=== PATIENT | female | born 1965 | race Caucasian/White ===

== ENCOUNTER → 2016-09-22 | Day surgery (SDC) | payer MEDICARE, MEDICAID ==
[~2016-09-22] VITALS: Ht 170.2 cm; Wt 79.0 kg
[~2016-09-22] MED LIST: ALBU8.5H2 INHALATION; ARIP5TAB5 PO; Atropine 0.4 mg/mL Inj IVPUSH PRN; CITA20TA11 PO; DIPH25CA6 PO; HYOS0.1281 SL; LITH300T2 PO; Lactated Ringer's 1,000 ML IV ONE; Lactated Ringer's 1,000 ML IV SCH; MetoCLOpramide 5 mg/mL 2 mL Inj IVPUSH PRN; NICO1PAT16 TRANSDERM; Ondansetron 2 mg/mL 2 mL Inj IVPUSH PRN; Propofol 10,000 mCg/mL 20 mL Inj ONE; QUET300T PO; TAMS0.4C98 PO; TOPI25TA26 PO; ZLP5T PO
[2016-09-22 10:44] VITALS: BP 111/68; PULSE 61; RESP 16; O2SAT 100
--- NOTE | 2016-09-22 11:24 | PCM.HPANE ---
Patient Data Date of Service: Sep 22, 2016 Surgeon Admitting Provider: Attending Provider:Aba De La Fuente MD Primary Care Physician:Linn Coronado PA-C Other Provider:Alem William Anesthesia Reason for Visit Bloody Diarrhea/Esophageal Dysphagia R19.7 R13.14 Ht/WT & BMI Height (Feet): 5 Height (Inches): 7 Weight (Kilograms): 79.016 Body Mass Index 27.00 Allergies Coded Allergies: Sulfa (Sulfonamide Antibiotics) (Verified Allergy, Unknown, 09/21/16) Past Anesthesia History Anesthesia History: Denies:: Abnormal Airway, Anesthesia Reactions, Difficult Intubation, Fam Anesthesia Reaction, Fam Malignant Hypertherm, Malignant Hyperthermia Diabetes History Hx Diabetes?: No MRSA MRSA: No Medications Home Meds Incl Beta Bobo: No Reported Medications Zolpidem (Ambien)5 Mg TabletUnknown Dose PO HS PRN For Insomnia Ref 0 09/22/16 Topiramate (Topamax)25 Mg Mzmnlu92 Mg PO BID Ref 0 09/22/16 Quetiapine Fumarate (Seroquel)300 Mg Khemjr290 Mg PO HS Ref 0 09/22/16 Hyoscyamine SL (Levsin SL)0.125 Mg Tab.subl0.125 Mg SL 09/21/16 Tamsulosin (Flomax)0.4 Mg Capsule0.4 Mg PO DAILY Ref 0 09/21/16 Albuterol HFA (Proair HFA)8.5 Gm Hfa.aer.ad2 Puffs INHALATION Q4H #1 INHALER 09/21/16 Avinger Carbonate 300 Mg Piefxl133 Mg PO TID 09/21/16 Citalopram 20 Mg Wewfsg57 Mg PO DAILY Ref 0 09/21/16 diphenhydrAMINE HCl (Benadryl)25 Mg Qxkqvbr16 Mg PO HS PRN Ref 0 09/21/16 Aripiprazole (Abilify)5 Mg Tablet5 Mg PO DAILY Ref 0 09/21/16 Discontinued Reported Medications Nicotine 21 mg/24 hr Patch 1 Each Patch.dysq1 Patch TRANSDERM DAILY Ref 0 09/21/16 History History of ENT Problems?: Yes HEENT History: Denies:: Abnormal Airway Difficult Intubation Dysphagia Hearing Problem Denture Type: Full- Upper Full- Lower Teeth Condition: No Teeth Other HEENT Pertinent History: PRIOR TO COMING IN THIS MORNING PATIENT REMOVED HER CONTACTS AND SCRATCHED HER RIGHT EYE. IT IS QUITE PAINFUL AND IS WATERY. LIGHTLY TURNED DOWN FOR COMFORT. Hx of Heart Problems?: No Cardiovascular History: Denies:: AICD Atrial Fibrillation Chest Pain Hypertension Pacemaker Valvular Heart Disease Hx of Respiratory Problem?: Yes Respiratory History: Denies:: Asthma COPD Cough Hemoptysis Pneumonia Tuberculosis Other Resp Pertinent History: SOB-PT BELIEVES THAT THIS IS RELATED TO SMOKING AND SUDDEN WEIGHT GAIN Hx Neurologic Problems?: No Neurological History: Denies:: CVA Hx of GI Problems?: Yes Gastrointestinal History: Positive for:: Gastroesphageal Reflux Rectal Bleeding Hx of Problems?: No HX of Peritoneal Dialysis: No Female Hx: Denies:: Currently (HYSTERECTOMY) Hx Musculoskeletal Problems?: No Musculoskeletal History: Denies:: Fibromyalgia Joint Replacement Psycho Social History: Positive for:: Anxiety Hx Depression (BIPOLAR) Hx Surgeries?: Yes (HYSTERECTOMY, LAPAROSCOPIES X4) Hx Any Other Health Problems?: Yes Hx Diabetes: No Hx Alcohol Use: NoHx Substance Use: Yes Smoking Status: Current Every Day Smoker Have You Smoked inLast 12 mo: Yes Stop/Bang Treated for Sleep Apnea?: No Do You Have a CPAP Machine?: No S-Snoring: Do You Snore Loudly: Yes T-Tired: feel tired, fatigued: No O-Obsered: Observed not breath: No P-Blood Pressure: treated: No B- Body Mass Index > 35 kg/m2: No A- Age over 50: Yes N- Neck Large Circumference: No G- Gender Male: No YANCI Total Score: 2 YANCI Risk Assessment: Low Risk, <3 Yes Risk Assessment Category Category 1A: Patient has history of documented sleep apnea, and HAS NOT received any narcotic, sedative or anesthesia administration during this stay. Category 1B: Patient has history of documented sleep apnea, and HAS received any narcotic , sedative or anesthesia administration during this stay Category 2: Patient has SUSPECTED Obstructive Sleep Apnea, and HAS received any narcotic , sedative or anesthesia administration during this stay. Category 3: Patient has SUSPECTED Obstructive Sleep Apnea and HAS NOT received narcotic, sedative or anesthesia administration during this stay. Category 4: Outpatient in Procedural Areas with known sleep apnea or who screen positive for High Risk via the STOP/BANG questionnaire. Exam Exam Vital Signs Vital Signs Date Time Temp Pulse Resp B/P Pulse Ox O2 Delivery O2 Flow Rate FiO2 09/22/16 10:44 61 16 111/68 100 Room Air General Appearance: Alert, Oriented X3, Cooperative HEENT/AIRWAY: MP 2, Neck Movement (Full), Mouth Opening (Wide) Lungs: Clear to Auscultation, Normal Air Movement Heart: Regular Rate/Rhythm, Normal S1, Normal S2 Meds/Labs/Diagnostics Admission Meds Current Medications Lactated Ringer's (Lr) 1,000 ml @ 10 mls/hr Q24H ONCE IV Last administered on 09/22/16t 10:49; Start 09/22/16 at 06:00; Stop 09/23/16 at 05:59 Plan Impression Patient chart reviewed, patient interviewed and anesthestic plan with risks, benefits, and alternatives discussed, and informed consent obtained. NPO per Anesth. Guidelines: Yes ASA Physical Status: ASA3 Severe Disease Anesthetic Plan: MAC Bene/Risks/Altern/Consents: Yes HP Complete Prior to Induction: Yes Osvaldo Snyder MD Sep 22, 2016 10:57
[2016-09-22 12:34] VITALS: BP 94/64; PULSE 67; RESP 12; O2SAT 100
--- NOTE | 2016-09-22 12:37 | PCM.ANEP1 ---
Post Anesthesia PACU Phase 1 Assessment Date of Service: Sep 22, 2016 Vital Signs Vital Signs Date Time Temp Pulse Resp B/P Pulse Ox O2 Delivery O2 Flow Rate FiO2 09/22/16 12:34 67 12 94/64 100 Room Air 09/22/16 10:44 61 16 111/68 100 Room Air Anesthetic Administered: MAC Level of Alertness: Sleepy, easy to arouse COX's with Equal Strength: Yes Pain: No Nausea or Vomiting: No CV Function & Hydration Stable: Yes Airway Device: Oxygen Delivery: Room Air Lungs: Clear to Auscultation, Normal Air Movement PACU Phase 2 Assessment Complications: No Follow up Care: N/A Patient Instructions Provided: N/A Osvaldo Snyder MD Sep 22, 2016 12:37
[2016-09-22 12:54] VITALS: BP 112/59; PULSE 65; RESP 14; O2SAT 97
--- NOTE | 2016-09-22 14:25 | ENDO ---
[address] [address] ENDOSCOPY PROCEDURE PATIENT: YOANNA ZAYAS : 1965 MR#: [id number] ADMIT: 09/22/2016 JOB ID: [id number] DATE: 09/22/2016 PRIMARY PROVIDER: Linn Coronado PA-C. PROCEDURE: Esophagogastroduodenoscopy with biopsy and a colonoscopy with biopsy and cold forceps polypectomy. INDICATIONS: A 51-year-old female with transient diarrhea of uncertain etiology. This has all resolved. Bowel movements are back to normal. She had also had some trouble with some difficulty swallowing but definitely downplayed that today in the endoscopy lab. She was surprised that this was even being worked up with the upper endoscopy that she was scheduled for. EQUIPMENT: GIF-H180J and a PCF-H180AL. SEDATION: Monitored anesthesia as provided by Dr. Osvaldo Snyder. COMPLICATIONS: None identified. BOWEL PREPARATION: Fair. Adequate exam. PROCEDURE INFORMATION: After the risks and benefits were explained, written and verbal informed consent was obtained, the patient was brought into the endoscopy suite and placed in the left lateral decubitus position. Sedation was achieved as above. Scope was introduced into the mouth through the bite block, and advanced to the second portion of the duodenum. The scope was slowly withdrawn to carefully examine the mucosa for any defects or lesions. Retroflexed views were accomplished in the stomach. The stomach was decompressed. The scope removed from the patient who tolerated the procedure well. The patient was then turned around. Digital rectal examination accomplished. Mild internal hemorrhoids noted. The scope was introduced into the rectum and advanced to cecum as identified by the appendiceal orifice and ileocecal valve. The terminal ileum was briefly accessed. The scope was then slowly withdrawn to carefully examine the mucosa for any defects or lesions. Retroflexed views were avoided in the rectum. Multiple direct views were made through the dentate line for exclusion of pathology. The colon was decompressed. The scope removed from the patient who tolerated the procedure well. FINDINGS: 1. Duodenum: No pathology identified from the bulb through to the second portion. Random biopsies were taken considering the patient's somewhat confusing symptoms. 2. Stomach: No outlet obstruction. No ulcers. No mass lesions. Mild gastropathy was seen. Retroflexed views of the LES were rather unremarkable. Random biopsy was taken from the stomach for exclusion of Helicobacter or any other underlying histopathology. 3. Esophagus: The squamocolumnar junction correlated with the top of the gastric folds. The GE junction was at 38 cm from the incisors. There was evidence of LA grade A erosive esophagitis. No strictures. No mass lesions. No Maryan identified throughout. 4. Terminal ileum. This appeared visually normal. 5. Colon: No macroscopic colitis seen throughout. The patient had a somewhat tortuous challenging navigation to cecum. Random colon biopsies were taken for exclusion of microscopic disease. There was a diminutive hyperplastic-appearing polyp in the descending colon, removed with cold forceps. ENDOSCOPIC DIAGNOSES: 1. Minimal gastropathy. 2. LA grade A erosive esophagitis. 3. Colon polyp. 4. Hemorrhoids. RECOMMENDATIONS: 1. Await histopathology. 2. Patient is encouraged to treat reflux with either a PPI or H2 receptor antagonist. 3. Follow up in GI clinic with Sunita Gonzales, in the next 3-4 weeks.
--- NOTE | 2016-09-24 12:32 | PATH ---
SURGICAL PATHOLOGY Attending Physician:Lydia Pope CASE STATUS: Signed Out PATIENT NAME: YOANNA ZAYAS PID: [id number] : 1965 DATE COLLECTED:09/22/2016 19:43 SPECIMEN: 1: Duodenum, Biopsy 2: Gastric, Biopsy 3: Colon, Biopsy 4: Colon, Polyp CLINICAL HISTORY: 1). DUODENAL BIOPSY 2). GASTRIC BIOPSY, RULE OUT H.PYLORI 3). RANDOM COLON BIOPSY 4). LEFT COLON POLYP X1 FINAL DIAGNOSIS: 1. Duodenal Biopsy: Duodenal mucosa with no diagnostic abnormality. Negative for active inflammation, features of sprue, dysplasia, and malignancy. 2. Gastric Biopsy: Superficial portions of gastric antral and gastric body-type mucosa with no diagnostic abnormality. No H. pylori organisms identified by H&E stain or immunohistochemistry studies. Negative for intestinal metaplasia, dysplasia, and malignancy. 3. Colon, Random Biopsy: Colorectal mucosa with no diagnostic abnormality. Negative for active inflammation, granulomas, dysplasia and malignancy. There is no evidence of microscopic colitis. 4. Left Colon Polyp Biopsy: Tubular adenoma; negative for high-grade dysplasia. ICD10: K63.5 GROSS DESCRIPTION: The specimen is received in four formalin filled containers labeled with the patient's name. 1). The specimen is labeled "duod" and consists of portions of tissue which aggregate to 0.3 x 0.3 x 0.2 CM. The specimen is entirely submitted in cassette 1A. 2). The specimen is labeled "gastric" and consists of a 0.1 x 0.1 x 0.1 CM portion of tissue which is entirely submitted in cassette 2A. 3). The specimen is labeled "random" and consists of a 0.6 x 0.1 x 0.1 CM portion of tissue which is entirely submitted in cassette 3A. 4). The specimen is labeled "left colon polyp" and consists of a 0.3 x 0.3 x 0.2 CM portion of tissue which is entirely submitted in cassette 4A. 09/22/2016DC MICRO DESCRIPTION: IMMUNOHISTOCHEMISTRY: Block 2A: H. pylori: Negative * This test was developed and its performance characteristics determined by [employer]. It has not been cleared or approved by the U.S. Food and Drug Administration. The FDA has determined that such clearance or approval is not necessary. This test is used for clinical purposes. It should not be regarded as investigational or for research. ICD-9 CODES: CPT CODES: 1: 80447 2: 70956, 11275 3: 65778 4: 19187 Electronically Signed Out Itzel Conley MD [facility] [address], [place] [address] Technical component performed at [facility], [facility] [address], [place], [address]
== END | disposition home or self-care (01) ==
LOC: END 09-05 12:56
PROVIDERS: ATTEND Internal Medicine Gastroenterology
DX: D12.4 Benign neoplasm of descending colon (principal); K64.8 Other hemorrhoids; K20.9 Esophagitis, unspecified; K31.9 Disease of stomach and duodenum, unspecified; R19.7 Diarrhea, unspecified; R13.14 Dysphagia, pharyngoesophageal phase; Z79.899 Other long term (current) drug therapy; Z88.2 Allergy status to sulfonamides
CPT/HCPCS: 43239; 45380; J7120